=== PATIENT | male | born 1955 | race Caucasian/White ===

== ENCOUNTER 2019-01-25 10:05 | Emergency (ER) | payer OTHER | END 2019-01-25 14:20 | disposition home or self-care (01) | LOC: FER 10:05 ==

== ENCOUNTER 2020-06-20 11:10 | Emergency (ER) | payer OTHER | END 2020-06-20 11:35 | disposition home or self-care (01) | LOC: JVIRT 11:10 | DX: Z03.818 Encounter for observation for suspected exposure to other biological agents ruled out (principal) | CPT/HCPCS: C9803; Q3014-GT; U0003 ==